=== PATIENT | female | born 1945 | race Caucasian/White ===

== ENCOUNTER 2017-02-08 12:52 | Emergency (ER) | payer OTHER ==
--- NOTE | 2017-02-08 13:27 | XRAY Preliminary Report ---
Exam: XR Wrist 4 View LT IMPRESSION: Scaphoid fracture. [facility] SITE ID: [id number]
--- NOTE | 2017-02-08 13:32 | XRAY Report ---
EXAM: LEFT WRIST RADIOGRAPHY EXAM DATE: 02/08/2017 01:11 PM. CLINICAL HISTORY: Pain after a fall yesterday. COMPARISON: None. TECHNIQUE: 4 views. FINDINGS: Bones: Acute hairline fracture extending through the mid body of the scaphoid. Joints: Bones in anatomic alignment. Mild to moderate degenerative changes throughout the wrist, unre markable for age. Soft Tissues: Edema at the fracture site. IMPRESSION: Scaphoid fracture. [facility] Referring Provider Line: [phone] SITE ID: [id number]
[2017-02-08] MEDS ORDERED: HYDROcod/ACETAM 5/325 MG TABLET PO STA (14:14)
[2017-02-08] MEDS ORDERED: HYDROcod/ACETAM 5/325 MG TABLET ONE (14:20)
--- NOTE | 2017-02-08 14:20 | ED Physician Documentation ---
PD HPI UPPER EXT INJURY - Stated complaint Stated Complaint: L WRIST INJ - Chief complaint Chief Complaint: Ext Problem - History obtained from History obtained from: Patient - History of Present Illness Location: Left (FOOSH with isolated L wrist injury last night, pain is severe) Review of Systems Constitutional: denies: Fever, Chills Cardiac: denies: Chest pain / pressure, Palpitations Respiratory: denies: Dyspnea, Cough GI: denies: Abdominal Pain PD PAST MEDICAL HISTORY - Past Medical History Past Medical History: Yes Other Past Medical History: neuropathies - Past Surgical History Past Surgical History: Yes Ortho: Arthroscopic surgery - Present Medications Home Medications: Ambulatory Orders Medication Instructions Recorded Confirmed Gabapentin 3 - 5 tab BID 02/08/17 02/08/17 HYDROcod/ACETAM 5/325 [Viola 5/325] 1 - 2 ea PO Q6H PRN #20 tablet 02/08/17 - Allergies Allergies/Adverse Reactions: Allergies Allergy/AdvReac Type Severity Reaction Status Date / Time No Known Drug Allergies Allergy Verified 02/08/17 12:58 - Social History Does the pt smoke?: No Smoking Status: Never smoker Does the pt drink ETOH?: Yes Does the pt have substance abuse?: No PD ED PE NORMAL - Vitals Vital signs reviewed: Yes - General General: Alert and oriented X 3, No acute distress - Neck Neck: Supple, no meningeal sign, No bony TTP - Extremities Extremities: Other (TTP with limited ROM at snuffbox on Left, NVI in hand.) - Neuro Neuro: Alert and oriented X 3, Normal speech Results - Vitals Vitals: Vital Signs - 24 hr 02/08/17 02/08/17 12:56 14:40 Temperature 36.3 C L Heart Rate 88 73 Respiratory 18 18 Rate Blood Pressure 127/88 H 123/69 O2 Saturation 99 99 Oxygen O2 Source Room air - Rads (name of study) L wrist 4v Radiology: EMP read contemporaneously (mid scaphoid frx) Procedures - Splint (location) L wrist Splint applied by: Tech Type of splint: Fiberglass, Short arm, Thumb spica Other: Patient tolerated well, No complications, Neurovascular intact PD MEDICAL DECISION MAKING - ED course ED course: She is visiting from [place], discussed the case by phone with Dr. Zapata who recommended that she would not need surgery, but does need prolonged immobilization and they will see her in the office. Departure - Departure Disposition: 01 Home, Self Care Clinical Impression: Scaphoid fracture of wrist Qualifiers: Encounter type: initial encounter Scaphoid bone location: middle third Fracture type: closed Fracture alignment: nondisplaced Laterality: left Qualified Code(s): S62.025A - Nondisplaced fracture of middle third of navicular [scaphoid] bone of left wrist, initial encounter for closed fracture Condition: Good Record reviewed to determine appropriate education?: Yes Instructions: ED Fx Wrist Navicular Conf Follow-Up: [facility] [Provider Group] Prescriptions: HYDROcod/ACETAM 5/325 [Viola 5/325] 1 - 2 ea PO Q6H PRN #20 tablet PRN Reason: Pain Comments: Call the orthopedics office today, let them know that I spoke with Dr. Zapata today. Get casted before you leave the area, anticipate 12 weeks of casting. Do not drink or drive while taking narcotic pain medication. Note that many narcotic pain relievers also contain Tylenol/acetaminophen. Please ensure that your total dose of acetaminophen from all sources does not exceed 3 g (3000 mg) per day. You may get constipated while on this medication. Take a stool softener such as Colace twice a day while you are on it. Also add an [id number] laxative such as senna or MiraLAX on any day that you do not have a bowel movement. If you received a narcotic pain medication or sedative while in the emergency department, do not drive for the next 24 hours. Your blood pressure was elevated today on check into the emergency department. This does not mean that you have hypertension, it is a common phenomenon to come to the emergency department and have elevated blood pressure. I recommend that she see her primary care physician within the week to have it rechecked when you are feeling better. Discharge Date/Time: 02/08/17 14:40
[2017-02-08 14:43] VITALS: BP 123/69
== END 2017-02-08 14:40 | disposition home or self-care (01) ==
LOC: ED 12:52
DX: S62.025A Nondisplaced fracture of middle third of navicular [scaphoid] bone of left wrist, initial encounter for closed fracture (principal); W19.XXXA Unspecified fall, initial encounter; R03.0 Elevated blood-pressure reading, without diagnosis of hypertension
CPT/HCPCS: 29125; 73110; 99283; A9270